=== PATIENT | female | born 1975 | race Caucasian/White ===

== ENCOUNTER → 2017-04-29 | Outpatient (CLI) | payer OTHER ==
[2014-03-19 14:04] VITALS: BP 138/79
--- NOTE | 2017-04-29 12:39 | VAS ---
Exam: Bilateral lower extremity venous Doppler exam History: 41-year-old female with bilateral leg pain. Evaluate for possible deep vein thrombosis. Comparison: None Findings: Ultrasound evaluation of the deep venous system of both legs was performed from the level of the ingu inal ligament down to the CT. On both sides, the deep system is widely patent with good flow and comp ressibility noted throughout its course. No sign of intraluminal thrombus on either side. IMPRESSION: No evidence of deep vein thrombosis is seen in either lower extremity. Reported By:
== END ==
LOC: RAD 12:05
PROVIDERS: ATTEND Internal Medicine
DX: R60.0 Localized edema (principal); M79.662 Pain in left lower leg
CPT/HCPCS: 93971